=== PATIENT | female | born 1940 | race Caucasian/White ===

== ENCOUNTER 2017-05-06 11:15 | Outpatient (CLI) | payer MEDICARE, BC ==
[~2017-05-06] VITALS: Ht 172.7 cm; Wt 78.2 kg
[~2017-05-06 11:15] MED LIST: ADVIL100 M1 PO; BACTRIM DS TABL1 TAB PO; COLACE100 MG PO; FAMOTIDINE10 MG PO; GLUCOSAMINE & C1 CAP PO; LEVAQUIN250 MG PO; LEVOXYL100 MCG PO; LOPRESSOR25 MG PO; MULTIPLE VITAMI1 TA1 PO; PREDNISONE20 MG PO; PRILOSEC20 MG PO; ULTRAM50 MG PO; VITAMIN B-12500 MC1 PO; VITAMIN D2000 UNIT PO; ZOFRAN8 MG PO; ZOVIRAX400 MG PO
[2017-05-06 11:44] VITALS: Ht 172.7 cm; Wt 78.2 kg
--- NOTE | 2017-05-06 16:25 | NUR ---
1510 REPORT FROM JULIANNE MAYBERRY RN. PT. RECEIVING 1ST UNIT BLOOD, INFUSING LT HAD AT 125/CC/HR 1540 DENIES PROBLEMS, RATE INCREASED TO 175/CC/HR. DENIES PROBLEMS, DOSING AT INTERVALS. IV SITE PATENT. 1555 BLOOD CONTS WITHOUT PROBLEMS 1610 BLOOD GOING WELL.
--- NOTE | 2017-05-06 17:09 | NUR ---
1650 1ST UNIT COMPLETED, LINE BEING FLUSHED WITH NS. REGULAR SUPPER TRAY SERVED. 1700 2ND UNIT CHECKED AT BEDSIDE BY THIS NURSE AND MYKEL WARE RN, INITIATED BY ALARIS PUMP AT 50/CC/HR. DENIES PROBLEMS. 1715 IV SITE PATENT, RATE INCREASED TO 150/CC/HR. PT ATE 80% SUPPER DIET. WATCHING TV NOW.
--- NOTE | 2017-05-06 17:40 | NUR ---
1730 RATE INCREASED TO 175/CC/HR.
--- NOTE | 2017-05-06 18:08 | NUR ---
1800 DAUGHTER AND SON IN LAW IN ROOM VISITING. IV SITE PATENT. DENIES PROBLEMS. ICE CREAM SERVED.
--- NOTE | 2017-05-06 19:48 | NUR ---
PATIENT WITHOUT SIGNS OR SYMPTOMS OF REACTION. LEFT WRIST PIV DC'D WITH TIP INTACT. DISCHARGE INSTRUCTIONS AND POST TRANSFUSION INSTRUCTIONS REVIEWED WITH PATIENT AND DAUGHTER, DISCHARGED HOME VIA WHEELCHAIR TO PRIVATE VEHICLE WITH DAUGHTER
== END 2017-05-06 19:50 | disposition home or self-care (01) ==
LOC: D.OPS 11:15
DX: D64.9 Anemia, unspecified (principal); C95.90 Leukemia, unspecified not having achieved remission

== ENCOUNTER 2017-11-04 18:38 | Inpatient (IN) | payer MEDICARE, BC ==
[~2017-11-04] VITALS: Ht 172.7 cm; Wt 71.8 kg
--- NOTE | ~2017-11-04 | EC ---
PATIENT:BUSHRA PYLE DATE OF SERVICE: 11/04/17 SEX: F MEDICAL RECORD: [id number] DATE OF : 42 LOCATION:[facility] AGE OF PATIENT: 77 ADMISSION DATE: 11/04/17 REFERRING PHYSICIAN: INTERPRETING PHYSICIAN: KAY STEARNS MD ECHOCARDIOGRAM REPORT ECHO CHARGES 4 ECHO COMPLETE CLINICAL DIAGNOSIS: ELEVATED TROPONIN ECHOCARDIOGRAPHIC MEASUREMENTS (adult normal given) AC root (d.<3.7cm) 3.2 cm LV Septum d (<1.2 cm> 1.4 cm Valve Excursion 1.3 cm LV Septum (systole) 2.0 cm Left Atria (s.<4.0cm> 4.1 cm LVPW d(<1.2cm) 1.1 cm RV (d.<2.3cm) 2.9 cm LVPW (sytole) 2.2 cm LV diastole(<5.6CM) 5.5 cm MV E-F(>70mm/sec) cm LV systole 2.4 cm LVOT Diameter 1.8 cm MV exc.(>10mm) cm Est.ejection fraction (50-75%) % Pericardial Effusion N DOPPLER: LVIT cm/sec A 92.0 cm/sec E 79.0 cm/sec LA cm/sec RVSP 39.0 mmHg LVOT 163 cm/sec AOP1/2T m/s Asc. Ao 183 cm/sec RVOT 97.0 cm/sec RA cm/sec PA 133 cm/sec AV Gradient Peak 13.4 mmHg AV Mean 7.9 mmHg AV Area 2.2 cm MV Gradient Peak 6.0 mmHg MV Mean 2.2 mmHg MV Area cm COMMENTS: Senior Vice President And Chief Information Officer: Elizabeth MONACO [place] [employer] Supervisor: Tamica Stearns TAPE# PACS DATE OF SERVICE: 11/10/2017 PROCEDURE: Transthoracic echocardiogram. FINDINGS: 1. Left ventricle is normal size, normal function, ejection fraction 55%. 2. The left atrium is mildly dilated. 3. The aortic valve is structurally normal, functionally normal. 4. The mitral valve has trace mitral regurgitation, otherwise normal. 5. Tricuspid valve has trace tricuspid regurgitation, otherwise normal. RVSP ECHOCARDIOGRAM REPORT [id number] BUSHRA PYLE is upper limits of normal at 30-35 mmHg. 6. The pericardium is normal. 7. The pulmonic valve: There is trace pulmonic insufficiency. 8. The right atrium is mildly dilated. 9. The right ventricle is normal size, normal function. 10. Inflow characteristics across the mitral valve into the left ventricle shows mild diastolic dysfunction. IMPRESSION: The patient has mild diastolic dysfunction, otherwise normal echo for age. TRANSINT:[id number] Voice Confirmation ID: [id number] DOCUMENT ID: [id number] 11/20/2017 Edited to correct date of service, dm. KAY STEARNS MD at 1038 CC: [id number] DICTATION DATE: 11/14/17 0834 ANIMAL HUSBANDRY TEACHER: 11/14/17 0957 DIS IN 11/15/17 [id number] [place] [address]
--- NOTE | ~2017-11-04 | CN ---
PATIENT NAME:BUSHRA PYLE MEDICAL RECORD: [id number] : 42 LOCATION:[facility] ADMIT DATE: 11/04/17 ACCOUNT: [id number] CONSULTING PHYSICIAN: EMMA FONG MD REFERRING PHYSICIAN: ALF CHEUNG MD DATE OF CONSULTATION: 11/05/2017 CONSULT REQUESTING PHYSICIAN: Alf Cheung MD REASON FOR CONSULTATION: Multiple pulmonary nodules and granulomatous pneumonitis, upper lobe. HISTORY OF PRESENT ILLNESS: Ms. Pyle is a 77-year-old female who has history of AML. She is getting chemotherapy and followed up at [facility] in [place]. The patient is sick for the last 2-3 days. She has fever. She is leukopenic. Cough with very little sputum production. No chest pain. There is some night sweats. REVIEW OF THE SYSTEMS: Mainly in the history of present illness. PAST MEDICAL HISTORY: AML; history of DVT; history of irregular heartbeat, possible AFib. PAST SURGICAL HISTORY: 1. Tonsillectomy. 2. Neck surgery. 3. Left iliac crest surgery. 4. Left total hip replacement. ALLERGIES: SHE IS ALLERGIC TO PENICILLIN, SULFA, AND HYDROCODONE. MEDICATIONS: She is on vancomycin, meropenem, and levothyroxine. Her all other medications are reviewed. PERSONAL AND SOCIAL HISTORY: The patient is nonsmoker and nondrinker. FAMILY HISTORY: Noncontributory. PHYSICAL EXAMINATION: GENERAL: Now, the patient is lying comfortably in bed. She is not in acute distress. VITAL SIGNS: The blood pressure is 135/58; pulse is 103; respiration is 18; and temperature is 101.9, T-max was 103.1. HEENT: Conjunctivae are pink. Sclerae not icteric. NECK: Neck is supple. No JVD. CHEST: The chest excursion is minimal although there are crackles at the apices. No wheezing. HEART: Rhythm regular. Normal sound. No murmur. ABDOMEN: Abdomen is soft. Bowel sounds present. No hepatosplenomegaly. RECTAL: Deferred. EXTREMITIES: No cyanosis, no clubbing, no pedal edema. SKIN: The skin is warm. Normal turgor. CENTRAL NERVOUS SYSTEM: The patient is awake and alert. There are no obvious cranial nerve abnormalities. The gait was not tested. CONSULT REPORT [id number] BUSHRA PYLE LABORATORY DATA: CBC; the WBC is 0.1, hemoglobin 8.8, hematocrit 25.8, and the platelet count is 61. Chemistry; sodium 132, potassium 3.7, BUN is 9, and creatinine 0.8. CT scan of the chest: There is a tree-in-bud appearance in bilateral upper lobes. There are multiple pulmonary nodules bilaterally, most of them are pleural based. IMPRESSION: 1. Multiple pulmonary nodules. 2. AML. 3. Febrile illness. 4. Pancytopenia consistent with leukopenia, thrombocytopenia, and anemia. 5. Granulomatous disease. RECOMMENDATION: We will continue meropenem and vancomycin. We will proceed with fiberoptic bronchoscopy tomorrow. Followup on the culture. Discussed with Dr. Cheung. He is going to consult Dr. Rodarte. The pulmonary nodule workup is per Dr. Cheung. Dr. Cheung, thank you for involving me in the care of Ms. Pyle. TRANSINT:[id number] Voice Confirmation ID: [id number] DOCUMENT ID: [id number] EMMA FONG MD at 1406 CC: ALF CHEUNG MD [id number] DICTATION DATE: 11/05/17 1616 HEATER ENGINEER HELPER: 11/05/17 1739 ADM IN [id number] [place] [address]
--- NOTE | ~2017-11-04 | OP ---
PATIENT NAME: BUSHRA MEDRANO MEDICAL RECORD: [id number] :42 LOCATION:[facility] ADMISSION DATE:11/04/17 SURGEON: EMMA FONG MD DATE OF OPERATION: 11/06/2017 PROCEDURE: Fiberoptic bronchoscopy. INDICATION: Ms. Medrano has a history of acute AML, admitted with febrile illness. The patient's CT scan of the chest, which showed some infiltrate upper lobe and also she has multiple pulmonary nodules. Fiberoptic bronchoscopy was carried out to obtain specimen for culture and sensitivity and checked for any endobronchial lesion. MONITORING: EKG, pulse, blood pressure were monitored throughout the procedure. MEDICATIONS: Versed 3 mg IV in divided doses, atropine 0.6 mg IM. DESCRIPTION OF PROCEDURE: Procedure of passing the bronchoscope through the mouth. The epiglottis was normal. The vocal cords were normal, moving equally on phonation. The main trachea was normal. The ryan was sharp. The subsegment to the right main bronchus, right upper lobe, right middle lobe, right lower lobe within normal range. No endobronchial lesion was seen. The left main bronchus was normal with subsegment to the left upper lobe lingula, left lower lobe within normal range. No endobronchial lesion was seen. Washing was obtained bilaterally from both upper lobes sent for routine culture and sensitivity, AFB and fungus, and cytology. Overall, the patient tolerated the procedure very well. TRANSINT:[id number] Voice Confirmation ID: [id number] DOCUMENT ID: [id number] EMMA FONG MD at 1406 CC: [id number] DICTATION DATE: 11/06/17 1641 SUGGESTION CLERK: 11/06/17 1735 ADM IN [facility] [address] [place] [address]
[2017-11-04 19:30] VITALS: BP 164/86
[2017-11-04 23:30] LABS: BASOPHILS 0 % (0-2); EOSINOPHILS 0 % (0-7); HEMATOCRIT 29.6 % (36.0-48.0); HEMOGLOBIN 10.2 g/dL (12-16); LYMPHOCYTES 54.5 % (15-50); MCH 28.9 pg (26.0-34.0); MCHC 34.5 g/dL (31.0-37.0); MCV 83.9 fL (80.0-100.0); MONOCYTES 36.4 % (2-11); NEUTROPHILS 9.1 % (40-80); RBC 3.53 10x6/uL (4.00-5.40)
[2017-11-04 23:31] LABS: PLATELET COUNT 7 10x3/uL (130-400); WBC 0.1 10x3/uL (4.8-10.8)
[2017-11-04 23:49] VITALS: BP 176/78
[2017-11-05 00:11] LABS: ALBUMIN 2.7 g/dL (3.4-5.0); ANION GAP 13.4 mmol/L (8-16); BILIRUBIN - TOTAL 0.29 mg/dL (0.2-1.3); CALCIUM 8.6 mg/dL (8.5-10.1); CARBON DIOXIDE 25.3 mmol/L (21.0-32.0); CREATININE - SERUM 0.8 mg/dL (0.6-1.3); POTASSIUM - SERUM 3.7 mmol/L (3.5-5.1)
[2017-11-05 01:11] VITALS: BP 176/78; BMI 24.1
[2017-11-05 09:32] VITALS: BP 170/79
[2017-11-05 12:09] LABS: HEMATOCRIT 25.8 % (36.0-48.0); HEMOGLOBIN 8.8 g/dL (12-16); MCH 28.5 pg (26.0-34.0); MCHC 34.1 g/dL (31.0-37.0); MCV 83.5 fL (80.0-100.0); MEAN PLATELET VOLUME 10.5 fL (7.4-10.4); RBC 3.09 10x6/uL (4.00-5.40)
[2017-11-05 12:36] LABS: PLATELET COUNT 61 10x3/uL (130-400)
[2017-11-05 12:37] LABS: WBC 0.1 10x3/uL (4.8-10.8)
[2017-11-05 13:11] LABS: LYMPHOCYTES 20 % (15-50); MONOCYTES 50 % (2-11)
[2017-11-05 13:12] LABS: HYPOCHROMASIA OCC; PLATELET ESTIMATE DECREASED; ROULEAUX OCC
[2017-11-05 13:27] VITALS: BP 135/58
[2017-11-05 14:40] VITALS: BMI 24.0
[2017-11-05 16:41] VITALS: BP 174/79
[2017-11-05 17:02] LABS: INR 1.16 (0.85-1.17); PROTIME 14.4 SECONDS (11.6-15.0)
[2017-11-05 17:03] LABS: APTT 39.6 SECONDS (22.8-39.4)
[2017-11-05 23:00] VITALS: BP 197/65
[2017-11-06] VITALS (9 sets, daily range): BP systolic 139–201; BP diastolic 60–89
[2017-11-06 08:37] LABS: HEMATOCRIT 26.6 % (36.0-48.0); HEMOGLOBIN 9.3 g/dL (12-16); MCH 29.2 pg (26.0-34.0); MCV 83.4 fL (80.0-100.0); MEAN PLATELET VOLUME 10.9 fL (7.4-10.4); RBC 3.19 10x6/uL (4.00-5.40); RDW 13.2 % (11.5-14.5)
[2017-11-06 09:03] LABS: ALBUMIN 2.3 g/dL (3.4-5.0); ANION GAP 10.9 mmol/L (8-16); BILIRUBIN - TOTAL 0.31 mg/dL (0.2-1.3); CALCIUM 8.5 mg/dL (8.5-10.1); CARBON DIOXIDE 24.4 mmol/L (21.0-32.0); CREATININE - SERUM 0.8 mg/dL (0.6-1.3); MAGNESIUM - SERUM 2.1 mg/dL (1.8-2.4); PHOSPHOROUS 1.8 mg/dL (2.5-4.9); POTASSIUM - SERUM 3.3 mmol/L (3.5-5.1); PROTEIN - SERUM 6.6 g/dL (6.4-8.2)
[2017-11-06 09:27] LABS: PLATELET COUNT 42 10x3/uL (130-400); WBC 0.1 10x3/uL (4.8-10.8)
[2017-11-06 10:21] LABS: LYMPHOCYTES 26 % (15-50); MONOCYTES 19 % (2-11); PLATELET ESTIMATE DECREASED
[2017-11-07 05:00] VITALS: BP 170/71
[2017-11-07 07:30] LABS: BASOPHILS 0 % (0-2); EOSINOPHILS 0 % (0-7); HEMATOCRIT 28.4 % (36.0-48.0); HEMOGLOBIN 9.7 g/dL (12-16); LYMPHOCYTES 69.2 % (15-50); MCH 28.7 pg (26.0-34.0); MCHC 34.2 g/dL (31.0-37.0); MEAN PLATELET VOLUME 10.3 fL (7.4-10.4); MONOCYTES 30.8 % (2-11); NEUTROPHILS 0 % (40-80); RBC 3.38 10x6/uL (4.00-5.40); RDW 13.2 % (11.5-14.5)
[2017-11-07 07:32] LABS: PLATELET COUNT 28 10x3/uL (130-400)
[2017-11-07 07:33] LABS: WBC 0.1 10x3/uL (4.8-10.8)
[2017-11-07 08:09] LABS: ALBUMIN 2.4 g/dL (3.4-5.0); ANION GAP 14.4 mmol/L (8-16); BILIRUBIN - TOTAL 0.3 mg/dL (0.2-1.3); CALCIUM 8.2 mg/dL (8.5-10.1); CARBON DIOXIDE 26.3 mmol/L (21.0-32.0); CREATININE - SERUM 0.8 mg/dL (0.6-1.3); POTASSIUM - SERUM 3.7 mmol/L (3.5-5.1); PROTEIN - SERUM 6.2 g/dL (6.4-8.2)
[2017-11-07 12:45] VITALS: BP 163/77
[2017-11-07 16:56] VITALS: BP 158/77
[2017-11-07 19:09] LABS: AFB SPECIMEN PROCESSING Concentration (())
[2017-11-07 20:00] VITALS: BP 158/74
[2017-11-08] VITALS (12 sets, daily range): BP systolic 115–168; BP diastolic 53–82
[2017-11-08 05:27] LABS: BASOPHILS 0 % (0-2); EOSINOPHILS 0 % (0-7); HEMOGLOBIN 9.3 g/dL (12-16); LYMPHOCYTES 46.7 % (15-50); MCH 28.8 pg (26.0-34.0); MCHC 34.4 g/dL (31.0-37.0); MCV 83.6 fL (80.0-100.0); MEAN PLATELET VOLUME 11.3 fL (7.4-10.4); MONOCYTES 53.3 % (2-11); NEUTROPHILS 0 % (40-80); RBC 3.23 10x6/uL (4.00-5.40)
[2017-11-08 05:31] LABS: PLATELET COUNT 13 10x3/uL (130-400); WBC 0.2 10x3/uL (4.8-10.8)
[2017-11-08 05:49] LABS: ALBUMIN 2.3 g/dL (3.4-5.0); ANION GAP 9.8 mmol/L (8-16); BILIRUBIN - TOTAL 0.31 mg/dL (0.2-1.3); CALCIUM 8.3 mg/dL (8.5-10.1); CARBON DIOXIDE 28.9 mmol/L (21.0-32.0); CREATININE - SERUM 0.9 mg/dL (0.6-1.3); PROTEIN - SERUM 6.7 g/dL (6.4-8.2)
[2017-11-08 05:53] LABS: POTASSIUM - SERUM 2.7 mmol/L (3.5-5.1)
[2017-11-08 14:17] LABS: FUNGUS STAIN Final report (())
[2017-11-08 22:53] LABS: APPEARANCE CLEAR (CLEAR); BILIRUBIN NEGATIVE (NEGATIVE); COLOR YELLOW (YELLOW); GLUCOSE NEGATIVE (NEGATIVE); KETONE NEGATIVE (NEGATIVE); NITRITE NEGATIVE (NEGATIVE); PROTEIN NEGATIVE (NEGATIVE); SPECIFIC GRAVITY 1.015 (1.005-1.020); UROBILINOGEN NORMAL (NORMAL)
[2017-11-09] VITALS: BP 130/59
[2017-11-09 05:00] VITALS: BP 146/53
[2017-11-09 07:31] LABS: BASOPHILS 0 % (0-2); EOSINOPHILS 0 % (0-7); HEMATOCRIT 22.6 % (36.0-48.0); IMMATURE GRANULOCYTES 3.8 % (0-5); LYMPHOCYTES 65.4 % (15-50); MCHC 35.4 g/dL (31.0-37.0); MCV 81.9 fL (80.0-100.0); MEAN PLATELET VOLUME 11.2 fL (7.4-10.4); MONOCYTES 30.8 % (2-11); NEUTROPHILS 0 % (40-80); RBC 2.76 10x6/uL (4.00-5.40); RDW 13.2 % (11.5-14.5)
[2017-11-09 07:47] LABS: PLATELET COUNT 29 10x3/uL (130-400); WBC 0.3 10x3/uL (4.8-10.8)
[2017-11-09 08:07] LABS: ANION GAP 11.7 mmol/L (8-16); CALCIUM 7.9 mg/dL (8.5-10.1); CARBON DIOXIDE 25.1 mmol/L (21.0-32.0); CREATININE - SERUM 0.9 mg/dL (0.6-1.3); PHOSPHOROUS 1.5 mg/dL (2.5-4.9)
[2017-11-09 08:08] LABS: POTASSIUM - SERUM 2.8 mmol/L (3.5-5.1)
[2017-11-09 11:07] VITALS: BP 136/64
[2017-11-09 15:14] VITALS: BP 130/56
[2017-11-09 17:08] LABS: FUNGAL - ASP FLAVUS Negative (Neg:<1:1); FUNGAL - ASP NIGER Negative (Neg:<1:1); FUNGAL - ASPER FUMIGATUS Negative (Neg:<1:1)
[2017-11-09 22:00] VITALS: BP 129/55
[2017-11-10] VITALS: BP 123/52
[2017-11-10 05:10] LABS: BASOPHILS 1.4 % (0-2); EOSINOPHILS 0 % (0-7); HEMATOCRIT 24.9 % (36.0-48.0); HEMOGLOBIN 8.8 g/dL (12-16); IMMATURE GRANULOCYTES 25.7 % (0-5); LYMPHOCYTES 24.3 % (15-50); MCHC 35.3 g/dL (31.0-37.0); MCV 82.2 fL (80.0-100.0); MONOCYTES 20.3 % (2-11); NEUTROPHILS 28.3 % (40-80); RBC 3.03 10x6/uL (4.00-5.40); RDW 13.3 % (11.5-14.5)
[2017-11-10 05:14] LABS: WBC 0.7 10x3/uL (4.8-10.8)
[2017-11-10 05:15] LABS: PLATELET COUNT 34 10x3/uL (130-400)
[2017-11-10 05:30] LABS: ALBUMIN 2.1 g/dL (3.4-5.0); ALKALINE PHOSPHATASE 76 U/L (46-116); BILIRUBIN - TOTAL 0.37 mg/dL (0.2-1.3); CALC OSMOLALITY 273 mosm/kg (275-300); CARBON DIOXIDE 27.3 mmol/L (21.0-32.0); CHLORIDE - SERUM 102 mmol/L (98-107); CREATININE - SERUM 0.9 mg/dL (0.6-1.3); GLUCOSE 117 mg/dL (74-106); PROTEIN - SERUM 5.6 g/dL (6.4-8.2); SODIUM 137 mmol/L (136-145); UREA NITROGEN 10 mg/dL (7-18); eGFR NON AFRICAN AMERICAN 64 mL/min (90-120)
[2017-11-10 05:31] LABS: ALT (SGPT) 34 U/L (10-68); POTASSIUM - SERUM 3.5 mmol/L (3.5-5.1)
[2017-11-10 05:38] LABS: CKMB 0.9 U/L (0.0-3.6); CREATINE KINASE 607 UL (21-215)
[2017-11-10 05:47] LABS: TROPONIN-I 0.095 ng/mL (0.000-0.060)
[2017-11-10 07:28] VITALS: BP 164/70
[2017-11-10 11:04] VITALS: BP 141/73
[2017-11-10 13:12] VITALS: Ht 172.7 cm; Wt 71.8 kg
[2017-11-10 14:03] LABS: CKMB 0.8 U/L (0.0-3.6)
[2017-11-10 14:04] LABS: CREATINE KINASE 443 UL (21-215); TROPONIN-I 0.111 ng/mL (0.000-0.060)
[2017-11-10 17:07] LABS: AEROBE ID Final report (())
[2017-11-10 19:28] LABS: CKMB 0.8 U/L (0.0-3.6); CREATINE KINASE 337 UL (21-215)
[2017-11-10 19:29] LABS: TROPONIN-I 0.072 ng/mL (0.000-0.060)
[2017-11-10 20:00] VITALS: BP 127/61
[2017-11-11] VITALS (22 sets, daily range): BP systolic 123–146; BP diastolic 52–67
[2017-11-11 01:33] LABS: CKMB 0.8 U/L (0.0-3.6); CREATINE KINASE 255 UL (21-215)
[2017-11-11 01:36] LABS: TROPONIN-I 0.066 ng/mL (0.000-0.060)
[2017-11-11 05:28] LABS: BASOPHILS 0 % (0-2); EOSINOPHILS 0 % (0-7); HEMATOCRIT 21.7 % (36.0-48.0); HEMOGLOBIN 7.6 g/dL (12-16); LYMPHOCYTES 42.2 % (15-50); MCH 28.8 pg (26.0-34.0); MCV 82.2 fL (80.0-100.0); MONOCYTES 57.8 % (2-11); NEUTROPHILS 0 % (40-80); RBC 2.64 10x6/uL (4.00-5.40); RDW 13.3 % (11.5-14.5)
[2017-11-11 05:29] LABS: PLATELET COUNT 9 10x3/uL (130-400); WBC 0.9 10x3/uL (4.8-10.8)
[2017-11-11 06:00] LABS: ALBUMIN 1.7 g/dL (3.4-5.0); ANION GAP 11.5 mmol/L (8-16); BILIRUBIN - TOTAL 0.29 mg/dL (0.2-1.3); CALCIUM 8.2 mg/dL (8.5-10.1); CARBON DIOXIDE 26.9 mmol/L (21.0-32.0); CREATININE - SERUM 0.9 mg/dL (0.6-1.3); PROTEIN - SERUM 5.7 g/dL (6.4-8.2)
[2017-11-11 06:02] LABS: POTASSIUM - SERUM 2.4 mmol/L (3.5-5.1)
[2017-11-12] VITALS: BP 119/49
[2017-11-12 04:00] VITALS: BP 141/60
[2017-11-12 07:03] LABS: BASOPHILS 0.4 % (0-2); EOSINOPHILS 0 % (0-7); LYMPHOCYTES 33.5 % (15-50); MCHC 35.1 g/dL (31.0-37.0); MCV 82.4 fL (80.0-100.0); MEAN PLATELET VOLUME 10.3 fL (7.4-10.4); MONOCYTES 66.1 % (2-11); NEUTROPHILS 0 % (40-80)
[2017-11-12 07:12] LABS: ALKALINE PHOSPHATASE 92 U/L (46-116); ALT (SGPT) 33 U/L (10-68); BILIRUBIN - TOTAL 0.36 mg/dL (0.2-1.3); CALC OSMOLALITY 280 mosm/kg (275-300); CALCIUM 8.2 mg/dL (8.5-10.1); CARBON DIOXIDE 29.2 mmol/L (21.0-32.0); CHLORIDE - SERUM 104 mmol/L (98-107); GLUCOSE 95 mg/dL (74-106); PROTEIN - SERUM 5.6 g/dL (6.4-8.2); SODIUM 142 mmol/L (136-145); UREA NITROGEN 8 mg/dL (7-18)
[2017-11-12 07:13] LABS: CREATININE - SERUM 0.5 mg/dL (0.6-1.3); eGFR NON AFRICAN AMERICAN > 90 mL/min (90-120)
[2017-11-12 07:14] LABS: POTASSIUM - SERUM 3.1 mmol/L (3.5-5.1)
[2017-11-12 07:48] LABS: HEMATOCRIT 27.6 % (36.0-48.0); HEMOGLOBIN 9.7 g/dL (12-16); RBC 3.35 10x6/uL (4.00-5.40); WBC 2.4 10x3/uL (4.8-10.8)
[2017-11-12 07:49] LABS: PLATELET COUNT 28 10x3/uL (130-400)
[2017-11-12 09:56] VITALS: BP 146/59
[2017-11-12 12:47] VITALS: BP 146/67
[2017-11-12 16:13] VITALS: BP 145/63
[2017-11-12 20:00] VITALS: BP 144/61
[2017-11-13] VITALS: BP 153/70
[2017-11-13 06:26] LABS: BASOPHILS 0 % (0-2); EOSINOPHILS 0 % (0-7); HEMATOCRIT 27.1 % (36.0-48.0); HEMOGLOBIN 9.3 g/dL (12-16); LYMPHOCYTES 23.9 % (15-50); MCH 28.2 pg (26.0-34.0); MCHC 34.3 g/dL (31.0-37.0); MCV 82.1 fL (80.0-100.0); MONOCYTES 76.1 % (2-11); NEUTROPHILS 0 % (40-80); RDW 14.1 % (11.5-14.5)
[2017-11-13 06:28] LABS: PLATELET COUNT 15 10x3/uL (130-400); WBC 3.2 10x3/uL (4.8-10.8)
[2017-11-13 06:31] LABS: ALBUMIN 1.9 g/dL (3.4-5.0); ALKALINE PHOSPHATASE 84 U/L (46-116); ALT (SGPT) 26 U/L (10-68); BILIRUBIN - TOTAL 0.31 mg/dL (0.2-1.3); CALC OSMOLALITY 280 mosm/kg (275-300); CALCIUM 8.4 mg/dL (8.5-10.1); CHLORIDE - SERUM 104 mmol/L (98-107); GLUCOSE 95 mg/dL (74-106); PROTEIN - SERUM 6.1 g/dL (6.4-8.2); SODIUM 142 mmol/L (136-145); UREA NITROGEN 6 mg/dL (7-18); eGFR NON AFRICAN AMERICAN 86 mL/min (90-120)
[2017-11-13 06:35] LABS: CREATININE - SERUM 0.7 mg/dL (0.6-1.3)
[2017-11-13 08:07] VITALS: BP 157/66
[2017-11-13 12:43] VITALS: BP 172/72
[2017-11-13 16:08] VITALS: BP 161/66
[2017-11-13 20:00] VITALS: BP 163/71
[2017-11-14 02:00] VITALS: BP 161/74
[2017-11-14 04:00] VITALS: BP 120/40
[2017-11-14 06:07] LABS: ALBUMIN 2.1 g/dL (3.4-5.0); ALKALINE PHOSPHATASE 92 U/L (46-116); ALT (SGPT) 27 U/L (10-68); CALC OSMOLALITY 284 mosm/kg (275-300); CALCIUM 9.1 mg/dL (8.5-10.1); CARBON DIOXIDE 31.3 mmol/L (21.0-32.0); CHLORIDE - SERUM 106 mmol/L (98-107); CREATININE - SERUM 0.6 mg/dL (0.6-1.3); GLUCOSE 99 mg/dL (74-106); POTASSIUM - SERUM 3.4 mmol/L (3.5-5.1); PROTEIN - SERUM 6.3 g/dL (6.4-8.2); SODIUM 144 mmol/L (136-145); UREA NITROGEN 6 mg/dL (7-18); eGFR NON AFRICAN AMERICAN > 90 mL/min (90-120)
[2017-11-14 06:34] LABS: HEMATOCRIT 26.7 % (36.0-48.0); HEMOGLOBIN 9.1 g/dL (12-16); MCH 28.2 pg (26.0-34.0); MCHC 34.1 g/dL (31.0-37.0); MCV 82.7 fL (80.0-100.0); MEAN PLATELET VOLUME 10.8 fL (7.4-10.4); RBC 3.23 10x6/uL (4.00-5.40); RDW 14.1 % (11.5-14.5)
[2017-11-14 06:38] LABS: PLATELET COUNT 29 10x3/uL (130-400); WBC 4.1 10x3/uL (4.8-10.8)
[2017-11-14 07:32] LABS: LYMPHOCYTES 18 % (15-50); MONOCYTES 66 % (2-11); NEUTROPHILS 2 % (40-80); PLATELET ESTIMATE DECREASED; ROULEAUX 1+
[2017-11-14 08:35] VITALS: BP 164/79
[2017-11-14 13:48] VITALS: BP 164/74
[2017-11-14 16:04] VITALS: BP 164/70
[2017-11-15] VITALS (7 sets, daily range): BP systolic 145–170; BP diastolic 24–78
[2017-11-15 11:48] LABS: HEMATOCRIT 29.7 % (36.0-48.0); HEMOGLOBIN 10.1 g/dL (12-16); MCH 28.8 pg (26.0-34.0); MCV 84.6 fL (80.0-100.0); MEAN PLATELET VOLUME 10.5 fL (7.4-10.4); RBC 3.51 10x6/uL (4.00-5.40); RDW 14.2 % (11.5-14.5); WBC 4.9 10x3/uL (4.8-10.8)
[2017-11-15 11:49] LABS: PLATELET COUNT 15 10x3/uL (130-400)
[2017-11-15 13:09] LABS: LYMPHOCYTES 17 % (15-50); MONOCYTES 66 % (2-11); NEUTROPHILS 3 % (40-80); PLATELET ESTIMATE DECREASED
[2017-11-15] MEDS ORDERED: PROTONIX40 MG PO (16:57)
[2017-11-18 07:09] LABS: OVA + PARASITE EXAM Final report (())
[2017-12-04 07:12] LABS: FUNGUS MYCOLOGY CULTURE Final report (())
[2017-12-24 13:16] LABS: ACID FAST CULTURE Negative (()); ACID FAST SMEAR Negative (())
== END 2017-11-15 19:44 | disposition home or self-care (01) | DRG 871 ==
LOC: D.MS 18:38
PROVIDERS: Internal Medicine Cardiovascular Disease; Internal Medicine Pulmonary Disease; Legal Medicine; Nurse Practitioner Family
PROC: 0B938ZZ Drainage of Right Main Bronchus, Via Natural or Artificial Opening Endoscopic (ICD-10-PCS; 2017-11-06)
PROC: 0B978ZZ Drainage of Left Main Bronchus, Via Natural or Artificial Opening Endoscopic (ICD-10-PCS; principal; 2017-11-06 10:00)
DX: R78.81 Bacteremia (principal); J15.6 Pneumonia due to other Gram-negative bacteria; D61.818 Other pancytopenia; C92.02 Acute myeloblastic leukemia, in relapse; B37.0 Candidal stomatitis; L98.9 Disorder of the skin and subcutaneous tissue, unspecified; B95.4 Other streptococcus as the cause of diseases classified elsewhere; R91.8 Other nonspecific abnormal finding of lung field; I10 Essential (primary) hypertension; E03.9 Hypothyroidism, unspecified; R19.7 Diarrhea, unspecified; D64.9 Anemia, unspecified; R50.9 Fever, unspecified